=== PATIENT | female | born 1990 | race African-American/Black ===

== ENCOUNTER 2016-08-26 13:00 | Emergency (ER) | payer OTHER ==
[2016-08-26] MEDS ORDERED: ONDANSETRON HCL 8 MG TABLET PO ONE (14:34)
[2016-08-26] MEDS ORDERED: ACETAMINOPHEN 325 MG TABLET PO ONE (14:34)
[2016-08-26] MEDS ORDERED: DIPHENHYDRAMINE HCL 25 MG CAPSULE PO ONE (14:34)
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
[2016-08-26 16:06] VITALS: BP 106/73
== END 2016-08-26 16:06 | disposition home or self-care (01) ==
LOC: ER 13:00
DX: R51 Headache (principal); M54.5 Low back pain; V87.7XXA Person injured in collision between other specified motor vehicles (traffic), initial encounter
CPT/HCPCS: 99283; 72110; 72070; S0119

== ENCOUNTER 2017-06-27 12:30 | Emergency (ER) | payer OTHER ==
[2017-06-27] MEDS ORDERED: LIDOCAINE 5% (700 MG) TRANSDERMAL ADH..PATCH TP ONE (13:33)
[2017-06-27] MEDS ORDERED: HYDROCODONE/ACETAMINOPHEN 5-325 MG TABLET PO ONE (13:33)
--- NOTE | 2017-06-27 13:34 | ER Document Report ---
HPI - HPI Patient complains to provider of: Low back pain Quality of pain: Achy Pain Level: 5 Context: Patient presents complaining of low back pain for the last month. Patient states pain will be worse at night. Patient denies any fever or urinary symptoms. Patient does state that about a month ago she lifted a wheelchair with a heavy patient in it and suspects that symptoms started then. Patient denies any nausea vomiting or diarrhea. Patient denies any radiculopathy or paresthesia. Associated Symptoms: Other - Low back pain. denies: Fever, Headache Exacerbated by: Supine, Movement, Walking Relieved by: Denies Similar symptoms previously: No Recently seen / treated by doctor: No - ROS ROS below otherwise negative: Yes Systems Reviewed and Negative: Yes All other systems reviewed and negative - CONSTITUTIONAL Constitutional: DENIES: Fever, Chills - NEURO Neurology: DENIES: Weakness - REPRODUCTIVE Reproductive: DENIES: : - MUSCULOSKELETAL Musculoskeletal: REPORTS: Back Pain. DENIES: Extremity pain - DERM Skin Color: Normal Skin Problems: None Past Medical History - General Information source: Patient - Social History Smoking Status: Current Every Day Smoker Chew tobacco use (# tins/day): No Smoking Education Provided: Yes Frequency of alcohol use: Occasional Drug Abuse: None Occupation: Childcare Lives with: Family Family History: DM, Malignancy Patient has suicidal ideation: No Patient has homicidal ideation: No - Past Medical History Cardiac Medical History: Reports: Hx Hypertension - hx last Denies: Hx Heart Murmur Endocrine Medical History: 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 Denies: Hx Hyperthyroidism, Hx Hypothyroidism Renal/ Medical History: Denies: Hx Ovarian Cysts, Hx Peritoneal Dialysis, Hx Pelvic Inflammatory Disease Malignancy Medical History: Denies: Hx Breast Cancer, Hx Cervical Cancer, Hx Ovarian Cancer GI Medical History: Reports: Hx Gastroesophageal Reflux Disease - OCCASSIONAL DURING . Denies: Hx Hiatal Hernia, Hx Ulcer Past Surgical History: Reports: Hx Section - X3 - Immunizations Immunizations up to date: Yes Hx Diphtheria, Pertussis, Tetanus Vaccination: Yes - already received Vertical Provider Document - CONSTITUTIONAL Agree With Documented VS: Yes Exam Limitations: No Limitations General Appearance: WD/WN, No Apparent Distress Notes: PHYSICAL EXAMINATION: GENERAL: Well-appearing, well-nourished and in no acute distress. HEAD: Atraumatic, normocephalic. EYES: sclera clear, anicteric, conjunctiva are normal. ENT: nares patent, Moist mucous membranes. NECK: Normal range of motion, supple no lymphadenopathy LUNGS: respirations unlabored HEART: Regular rate and rhythm without murmurs EXTREMITIES: Normal range of motion, no pitting or edema. No cyanosis. Gait normal, pt ambulates without difficulty BACK: Patient with a right SI joint tenderness, lumbar paraspinal tenderness no lumbar midline tenderness, no deformities or step-offs. No CVA tenderness. NEUROLOGICAL: Cranial nerves grossly intact. Normal speech, normal gait. No saddle anesthesia. PSYCH: Normal mood, normal affect. SKIN: Warm, Dry, normal turgor, no rashes or lesions noted. - INFECTION CONTROL TRAVEL OUTSIDE OF THE [place] IN LAST 30 DAYS: No - RESPIRATORY O2 Sat by Pulse Oximetry: 99 - GI/ABDOMEN Gastrointestinal: Abdomen Soft, Abdomen Non-Tender, No Organomegaly, Normal Bowel Sounds Course - Re-evaluation Re-evalutation: 06/27/17 15:26 Controlled substance database reviewed The patient presents with low back pain without signs of spinal cord compression , cauda equina syndrome, infection, aneurysm, or other serious etiology. The patient is neurologically intact. Given the extremely risk of these diagnoses further testing and evaluation for these possibilities does not appear to be indicated at this time. Patient has been instructed to return if the symptoms worsen or change in any way. - Vital Signs Vital signs: Temp Pulse Resp BP Pulse Ox 98.6 F 82 16 113/66 99 06/27/17 12:35 06/27/17 12:35 06/27/17 12:35 06/27/17 12:35 06/27/17 12:35 - Laboratory Laboratory results interpreted by me: 06/27/17 15:26 Labs- Entire Visit 06/27/17 13:54 Urine Color YELLOW Urine Appearance CLEAR Urine pH 5.0 Ur Specific [place] 1.021 Urine Protein NEGATIVE Urine Glucose (UA) NEGATIVE Urine Ketones NEGATIVE Urine Blood NEGATIVE Urine Nitrite NEGATIVE Urine Bilirubin NEGATIVE Urine Urobilinogen NEGATIVE Ur Leukocyte Esterase NEGATIVE Urine WBC (Auto) 0 Urine RBC (Auto) 0 Squamous Epi Cells Auto 1 Urine Mucus (Auto) OCC Urine Ascorbic Acid NEGATIVE Urine HCG, Qual NEGATIVE - Diagnostic Test Radiology reviewed: Reports reviewed Discharge - Discharge Clinical Impression: Low back pain Qualifiers: Chronicity: unspecified Back pain laterality: right Sciatica presence: without sciatica Qualified Code(s): M54.5 - Low back pain Condition: Stable Disposition: HOME, SELF-CARE Instructions: Ice Packs ([facility]), Low Back Pain ([facility]), Warm Packs ([facility]) Additional Instructions: Return immediately for any new or worsening symptoms Followup with your primary care provider, call tomorrow to make a followup appointment Prescriptions: Cyclobenzaprine HCl [Flexeril 10 Mg Tablet] 10 mg PO TID #15 tablet Naproxen [Naprosyn 250 Nmg Tablet] 1 tab PO BID #14 tablet Forms: Smoking Cessation Education, Return to Work Referrals: [facility] [Provider Group] - Follow up as needed
[2017-06-27 14:15] LABS: APPEARANCE,URINE CLEAR; BILIRUBIN,URINE NEGATIVE (NEGATIVE); COLOR,URINE YELLOW; GLUCOSE, URINE NEGATIVE (NEGATIVE); KETONES,URINE NEGATIVE (NEGATIVE); LEUKOCYTE ESTERASE,URINE NEGATIVE (NEGATIVE); NITRITE,URINE NEGATIVE (NEGATIVE); PROTEIN,URINE NEGATIVE (NEGATIVE); URINE SPECIFIC GRAVITY 1.021; UROBILINOGEN,URINE NEGATIVE mg/dL (<2.0)
--- NOTE | 2017-06-27 15:12 | RADIOLOGY REPORT (SQ) ---
EXAM DESCRIPTION: L SPINE WHOLE COMPLETED DATE/TIME: 06/27/2017 3:02 pm REASON FOR STUDY: low back pain COMPARISON: 08/26/2016. NUMBER OF VIEWS: Five views including obliques. TECHNIQUE: AP, lateral, oblique, and sacral radiographic images acquired of the lumbar spine. LIMITATIONS: None. FINDINGS: MINERALIZATION: Normal. SEGMENTATION: Normal. No transitional anatomy. ALIGNMENT: Normal. VERTEBRAE: Maintained height. No fracture or worrisome bone lesion. DISCS: Preserved height. No significant osteophytes or end plate irregularity. POSTERIOR ELEMENTS: Pedicles and facets are intact. No pars defect or posterior arch defects. HARDWARE: None in the spine. PARASPINAL SOFT TISSUES: Normal. PELVIS: Intact as visualized. No fractures or worrisome bone lesions. SI joints intact. OTHER: No other significant finding. IMPRESSION: NORMAL 5 VIEW LUMBAR SPINE. TECHNICAL DOCUMENTATION: JOB ID: [id number] [employer]- All Rights Reserved
[2017-06-27 15:52] VITALS: BP 104/77
== END 2017-06-27 15:52 | disposition home or self-care (01) ==
LOC: ER 12:30
DX: M54.5 Low back pain (principal); F17.200 Nicotine dependence, unspecified, uncomplicated
CPT/HCPCS: 72110; 81001; 81025; 99283

== ENCOUNTER 2018-05-12 10:24 | Observation (INO) | payer SELFPAY ==
[2018-05-12] MEDS ORDERED: KETOROLAC TROMETHAMINE 60 MG/2 ML SDV ONE (10:49)
[2018-05-12] MEDS ORDERED: SUCCINYLCHOLINE CHLORIDE INJ 200 MG/10 ML VIAL ONE (10:49)
[2018-05-12] MEDS ORDERED: DEXAMETHASONE SOD PHOSPHATE INJ 4 MG/1 ML VIAL ONE (10:49)
[2018-05-12] MEDS ORDERED: ONDANSETRON HCL INJ/PF 4 MG/2 ML SDV ONE (10:49)
[2018-05-12] MEDS ORDERED: LIDOCAINE 4%/TETRACAINE 0.5%/EPI 0.18% 5 ML TOPICAL SOLN TOP ONE (11:23)
--- NOTE | 2018-05-12 11:30 | ER Document Report ---
ED Medical Screen (RME) - General TRAVEL OUTSIDE OF THE [place] IN LAST 30 DAYS: No <DARELL ANGULO - Last Filed: 05/12/18 11:23> <DANNIE CALLAHAN - Last Filed: 05/12/18 19:17> - General Chief Complaint: Rectal Pain Stated Complaint: POSSIBLE ABSCESS Time Seen by Provider: 05/12/18 11:17 Notes: 27-year-old female with history of hemorrhoids who presents to the emergency department today with complaints of 2 weeks of rectal pain. Boyfriend at bedside states that it appears that there is "pus in it". Patient states she has used Preparation H cream and Preparation H suppositories with no relief. Patient also states she sat in a warm bath and use sits baths as well, again with no relief. Patient states she has pain with bowel movements. I have greeted and performed a rapid initial assessment of this patient. A comprehensive ED assessment and evaluation of the patient, analysis of test results, and completion of the medical decision making process will be conducted by additional ED providers. Review of systems: GI/: Rectal pain. Possible hemorrhoid or abscess. PHYSICAL EXAM GENERAL: Alert, interacts well. No acute distress. HEAD: Normocephalic, atraumatic. EYES: Pupils equal, round, and reactive to light. Extraocular movements intact. ENT: Oral mucosa moist, tongue midline. NECK: Full range of motion. Supple. Trachea midline. LUNGS: No respiratory distress. EXTREMITIES: Moves all 4 extremities spontaneously. RECTAL: At the 12 o'clock position there is a large firm mass with exquisite tenderness to palpation. There is a thin white area that is suspicious for abscess versus thrombosed normally. NEUROLOGICAL: Alert and oriented x3. Normal speech. PSYCH: Normal affect, normal mood. SKIN: Warm, dry, normal turgor. (DARELL ANGULO) - Related Data Allergies/Adverse Reactions: No Known Allergies Allergy (Verified 05/12/18 10:24) Past Medical History - Social History Chew tobacco use (# tins/day): No Frequency of alcohol use: None Drug Abuse: None - Past Medical History Cardiac Medical History: Reports: Hx Hypertension - hx last Denies: Hx Heart Murmur Endocrine Medical History: 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 Denies: Hx Hyperthyroidism, Hx Hypothyroidism Renal/ Medical History: Denies: Hx Ovarian Cysts, Hx Peritoneal Dialysis, Hx Pelvic Inflammatory Disease Malignancy Medical History: Denies: Hx Breast Cancer, Hx Cervical Cancer, Hx Ovarian Cancer GI Medical History: Reports: Hx Gastroesophageal Reflux Disease - OCCASSIONAL DURING . Denies: Hx Hiatal Hernia, Hx Ulcer Past Surgical History: Reports: Hx Section - X3 - Immunizations Immunizations up to date: Yes Hx Diphtheria, Pertussis, Tetanus Vaccination: Yes - already received <DARELL ANGULO - Last Filed: 05/12/18 11:23> - Vital signs Vitals: Temp Pulse Resp BP Pulse Ox 98.4 F 94 15 116/63 99 05/12/18 10:28 05/12/18 10:28 05/12/18 10:28 05/12/18 10:28 05/12/18 10:28 Course - Laboratory Result Diagrams: 05/12/18 12:16 05/12/18 12:16 <DANNIE CALLAHAN - Last Filed: 05/12/18 19:17> - Vital Signs Vital signs: Temp Pulse Resp BP Pulse Ox 97.7 F 80 16 105/64 100 05/12/18 18:41 05/12/18 18:41 05/12/18 18:41 05/12/18 18:41 05/12/18 18:41 - Laboratory Laboratory results interpreted by me: 05/12/18 12:16 Hgb 10.7 L Hct 33.7 L MCV 69 L MCH 22.0 L MCHC 31.7 L RDW 17.7 H Doctor's Discharge <DARELL ANGULO - Last Filed: 05/12/18 11:23> <DANNIE CALLAHAN - Last Filed: 05/12/18 19:17> - Discharge Clinical Impression: Perirectal abscess Condition: Stable Disposition: ADMITTED OBSERVATION Scribe Documentation - Scribe Written by Scribe:: Ynes Harris, 05/12/2018 [id number] acting as scribe for :: Jeevan <DARELL ANGULO - Last Filed: 05/12/18 11:23>
[2018-05-12] MEDS ORDERED: FENTANYL CITRATE INJ/PF 100 MCG/2 ML AMPUL IV ONE (12:00)
[2018-05-12] MEDS ORDERED: NORMAL SALINE 1000 ML 1,000 ML IV ONE (12:00)
[2018-05-12] MEDS ORDERED: CIPROFLOXACIN 400 MG/D5W RTU 400 MG/200 ML RTUPB IV ONE (12:01)
--- NOTE | 2018-05-12 12:06 | ER Document Report ---
ED GI Bleed / Rectal Pain - General Chief Complaint: Rectal Pain Stated Complaint: POSSIBLE ABSCESS Time Seen by Provider: 05/12/18 11:17 Mode of Arrival: Ambulatory Information source: Patient Notes: Patient presents complaining of rectal pain for the past 2 weeks. Patient states that she has blood with bowel movements. Patient is concerned that she has hemorrhoids. Patient denies any fever. Patient denies any history of inflammatory bowel disease. TRAVEL OUTSIDE OF THE [place] IN LAST 30 DAYS: No - HPI Patient complains to provider of: Bright red bld from rect., Hemorrhoids, Rectal pain Onset: Other - 2 weeks Timing/Duration: Persistent Pain Level: 4 Rectal bleeding: Blood streaks on stool Exacerbated by: Denies Relieved by: Denies Similar symptoms previously: Yes Recently seen / treated by doctor: No - Related Data Allergies/Adverse Reactions: No Known Allergies Allergy (Verified 05/12/18 10:24) Past Medical History - General Information source: Patient - Social History Smoking Status: Current Every Day Smoker Chew tobacco use (# tins/day): No Frequency of alcohol use: None Drug Abuse: None Occupation: Care of disabled people Lives with: Spouse/Significant other Family History: DM, Malignancy Patient has suicidal ideation: No Patient has homicidal ideation: No - Past Medical History Cardiac Medical History: Reports: Hx Hypertension - hx last Denies: Hx Heart Murmur Endocrine Medical History: 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 Denies: Hx Hyperthyroidism, Hx Hypothyroidism Renal/ Medical History: Denies: Hx Ovarian Cysts, Hx Peritoneal Dialysis, Hx Pelvic Inflammatory Disease Malignancy Medical History: Denies: Hx Breast Cancer, Hx Cervical Cancer, Hx Ovarian Cancer GI Medical History: Reports: Hx Gastroesophageal Reflux Disease - OCCASSIONAL DURING . Denies: Hx Hiatal Hernia, Hx Ulcer Past Surgical History: Reports: Hx Section - X3 - Immunizations Immunizations up to date: Yes Hx Diphtheria, Pertussis, Tetanus Vaccination: Yes - already received Review of Systems - Review of Systems Constitutional: No symptoms reported. denies: Fever EENT: No symptoms reported Cardiovascular: No symptoms reported Respiratory: No symptoms reported. denies: Cough Gastrointestinal: Rectal bleeding. denies: Abdominal pain, Nausea, Vomiting Genitourinary: No symptoms reported Female Genitourinary: No symptoms reported Musculoskeletal: No symptoms reported. denies: Back pain Skin: No symptoms reported Hematologic/Lymphatic: No symptoms reported Neurological/Psychological: No symptoms reported Physical Exam - Vital signs Vitals: Temp Pulse Resp BP Pulse Ox 98.4 F 94 15 116/63 99 05/12/18 10:28 05/12/18 10:28 05/12/18 10:28 05/12/18 10:28 05/12/18 10:28 - General General appearance: Appears well, Alert In distress: None - HEENT Head: Normocephalic, Atraumatic Eyes: Normal Conjunctiva: Normal Nasal: Normal Mouth/Lips: Normal Mucous membranes: Normal Neck: Normal, Supple. No: Lymphadenopathy - Respiratory Respiratory status: No respiratory distress Chest status: Nontender Breath sounds: Normal. No: Rales, Rhonchi, Stridor Chest palpation: Normal - Cardiovascular Rhythm: Regular Heart sounds: S1 appreciated, S2 appreciated Murmur: No - Rectal Tenderness: Yes Hemorrhoids: Other - Swelling perirectally with several small pustules Notes: Digital rectal exam performed, patient with subtle fullness felt in rectum anteriorly, after rectal exam performed, patient with obvious purulent drainage from rectum - Back Back: Normal, Nontender. No: Vertebra tenderness - Extremities General upper extremity: Normal inspection, Normal ROM General lower extremity: Normal inspection, Normal ROM - Neurological Neuro grossly intact: Yes Cognition: Normal [place] Coma Scale Eye Opening: Spontaneous [place] Coma Scale Verbal: Oriented [place] Coma Scale Motor: Obeys Commands [place] Coma Scale Total: 15 - Psychological Associated symptoms: Normal affect, Normal mood - Skin Skin Temperature: Warm Skin Moisture: Dry Skin Color: Normal Course - Re-evaluation Re-evalutation: 05/12/18 12:[address] Brown who agrees to exam patient. Recommend starting an IV antibiotics as well as work at this time. Dr. Brown will be down to see patient after he finishes with current surgical case. 05/12/18 13:33 Dr. Brown had been down to evaluate patient and plans to take her to the OR later today. Will plan for admission at this time. - Vital Signs Vital signs: Temp Pulse Resp BP Pulse Ox 97.5 F 88 18 128/81 H 100 05/12/18 17:40 05/12/18 17:40 05/12/18 17:40 05/12/18 17:40 05/12/18 17:40 - Laboratory Result Diagrams: 05/12/18 12:16 12/26/18 12:16 Laboratory results interpreted by me: 05/12/18 12:16 Hgb 10.7 L Hct 33.7 L MCV 69 L MCH 22.0 L MCHC 31.7 L RDW 17.7 H Labs- Entire Visit 05/12/18 05/12/18 05/12/18 12:16 12:16 12:16 WBC 5.9 RBC 4.87 Hgb 10.7 L Hct 33.7 L MCV 69 L MCH 22.0 L MCHC 31.7 L RDW 17.7 H Plt Count 347 Seg Neutrophils % 63.9 Lymphocytes % 26.0 Monocytes % 8.2 Eosinophils % 1.5 Basophils % 0.4 Absolute Neutrophils 3.8 Absolute Lymphocytes 1.5 Absolute Monocytes 0.5 Absolute Eosinophils 0.1 Absolute Basophils 0.0 Sodium 137.7 Potassium 3.9 Chloride 105 Carbon Dioxide 28 Anion Gap 5 BUN 14 Creatinine 0.61 Est GFR ( Amer) > 60 Est GFR (Non-Af Amer) > 60 Glucose 91 Calcium 8.9 Total Bilirubin 0.5 Direct Bilirubin 0.3 Neonat Total Bilirubin Not Reportable Neonat Direct Bilirubin Not Reportable Neonat Indirect Bili Not Reportable AST 27 ALT 15 Alkaline Phosphatase 86 Total Protein 7.4 Albumin 4.2 Serum HCG, Qual NEGATIVE Discharge - Discharge Clinical Impression: Perirectal abscess Condition: Stable Disposition: ADMITTED OBSERVATION Admitting Provider: Surgicalist Unit Admitted: Medical Floor
[2018-05-12 12:49] LABS: ABSOLUTE EOSINOPHILS # (AUTO) 0.1 10^3/uL (0.0-0.6); ABSOLUTE LYMPHOCYTES (AUTO) 1.5 10^3/uL (0.5-4.7); ABSOLUTE MONOCYTES (AUTO) 0.5 10^3/uL (0.1-1.4); ABSOLUTE NEUT (AUTO) 3.8 10^3/uL (1.7-8.2); BASOPHILS % (AUTO) 0.4 % (0-2); EOSINOPHILS % (AUTO) 1.5 % (0-6); HEMATOCRIT 33.7 % (36.0-47.0); HEMOGLOBIN 10.7 g/dL (12.0-15.5); MEAN CORPUSCULAR HGB CONC 31.7 g/dL (32.0-36.0); MEAN CORPUSCULAR VOLUME 69 fl (80-97); MONOCYTES % (AUTO) 8.2 % (3-13); PLATELET COUNT 347 10^3/uL (150-450); RED BLOOD COUNT 4.87 10^6/uL (3.72-5.28); RED CELL DISTRIBUTION WIDTH 17.7 % (11.5-14.0); SEGMENTED NEUTROPHILS % (AUTO) 63.9 % (42-78); TOTAL CELLS COUNTED % (AUTO) 100 %; WHITE BLOOD COUNT 5.9 10^3/uL (4.0-10.5)
[2018-05-12] MEDS ORDERED: MORPHINE SULFATE 10 MG/ML INJ IV PRN ×2 (12:59→16:06)
[2018-05-12] MEDS ORDERED: NORMAL SALINE 1000 ML 1,000 ML IV PRN (12:59)
[2018-05-12] MEDS ORDERED: ONDANSETRON HCL INJ/PF 4 MG/2 ML SDV IV PRN (12:59)
[2018-05-12 13:00] LABS: ALBUMIN 4.2 g/dL (3.5-5.0); ANION GAP 5 (5-19); BILIRUBIN,DIRECT 0.3 mg/dL (0.0-0.4); BILIRUBIN,TOTAL 0.5 mg/dL (0.2-1.3); BLOOD UREA NITROGEN 14 mg/dL (7-20); CALCIUM 8.9 mg/dL (8.4-10.2); CARBON DIOXIDE 28 mmol/L (22-30); CHLORIDE 105 mmol/L (98-107); GLUCOSE 91 mg/dL (75-110); SODIUM 137.7 mmol/L (137-145); TOTAL PROTEIN 7.4 g/dL (6.3-8.2)
[2018-05-12] MEDS ORDERED: METRONIDAZOLE 500 MG/NS RTU 500 MG/100 ML RTUPB IV ONE (13:00)
[2018-05-12 13:10] LABS: ALANINE AMINOTRANSFERASE 15 U/L (9-52); ALKALINE PHOSPHATASE 86 U/L (38-126); ASPARTATE AMINO TRANSFERASE 27 U/L (14-36); POTASSIUM 3.9 mmol/L (3.6-5.0)
[2018-05-12] MEDS ORDERED: ACETAMINOPHEN 1,000 MG/100 ML RTUPB IV ONE (14:41)
[2018-05-12] MEDS ORDERED: MIDAZOLAM 2 MG/2 ML INJ ONE (14:41)
[2018-05-12] MEDS ORDERED: PROPOFOL INJ 200 MG/20 ML VIAL IV ONE (14:41)
[2018-05-12] MEDS ORDERED: FENTANYL CITRATE INJ/PF 100 MCG/2 ML AMPUL ONE (14:41)
--- NOTE | 2018-05-12 14:57 | PDOC H&P ---
History of Present Illness Admission Date/PCP: 05/12/18 13:55 Patient complains of: Perirectal pain and swelling History of Present Illness: WENDY MARLEY is a 27 year old female with a remote history of hemorrhoids. She reports that she always has skin tags present on the anterior anus. The patient approximate 1 week ago began to have swelling and pain. This has progressed to purulent drainage today. Her pain is sharp and stabbing. It is unrelenting. She rates it 10 out of 10. It does not radiate. She denies fevers, chills, nausea, vomiting, melena, hematochezia, hematemesis, chest pain, shortness of breath, dizziness, orthostasis, blurry vision, malaise, or fatigue. Past Medical History Cardiac Medical History: Reports: Hypertension - hx last Denies: Heart Murmur Endocrine Medical History: Reports: Diabetes Mellitus Type 2 - gestational Denies: Hyperthyroidism, Hypothyroidism Malignancy Medical History: Denies: Breast Cancer, Cervical Cancer, Ovarian Cancer GI Medical History: Reports: Gastroesophageal Reflux Disease - OCCASSIONAL DURING Denies: Hiatal Hernia Past Surgical History Past Surgical History: Reports: Section - X3 Social History Smoking Status: Current Every Day Smoker Hx Recreational Drug Use: No Hx Prescription Drug Abuse: No - Advance Directive Resuscitation Status: Full Code Family History Family History: DM, Malignancy Parental Family History Reviewed: Yes Children Family History Reviewed: Yes Sibling(s) Family History Reviewed.: Yes Medication/Allergy Allergies/Adverse Reactions: No Known Allergies Allergy (Verified 05/12/18 10:24) Review of Systems Constitutional: ABSENT: anorexia, chills, fatigue, fever(s), headache(s) Eyes: ABSENT: visual disturbances Ears: ABSENT: hearing changes Nose, Mouth, and Throat: ABSENT: sore throat Cardiovascular: ABSENT: chest pain, palpitations Respiratory: ABSENT: cough, dyspnea Gastrointestinal: PRESENT: other - Rectal pain, swelling, and drainage. ABSENT: abdominal pain, bloating, nausea, vomiting Genitourinary: ABSENT: dysuria Musculoskeletal: ABSENT: back pain Integumentary: PRESENT: other - Perirectal swelling, pain, and drainage Neurological: ABSENT: confusion, convulsions, dizziness Psychiatric: ABSENT: anxiety Endocrine: ABSENT: cold intolerance, heat intolerance Hematologic/Lymphatic: ABSENT: easy bleeding, easy bruising Physical Exam Vital Signs: Temp Pulse Resp BP Pulse Ox 97.7 F 73 16 114/74 100 05/12/18 14:20 05/12/18 14:20 05/12/18 14:20 05/12/18 14:20 05/12/18 14:20 Intake & Output 05/11/18 05/12/18 05/13/18 06:59 06:59 06:59 Intake Total 100 Balance 100 Weight 80.2 kg General appearance: PRESENT: mild distress - Rectal pain Head exam: PRESENT: atraumatic, normocephalic Eye exam: PRESENT: EOMI, PERRLA. ABSENT: scleral icterus Mouth exam: PRESENT: moist, neck supple Neck exam: ABSENT: meningismus, tenderness, thyromegaly, tracheal deviation Respiratory exam: PRESENT: clear to auscultation manjeet, unlabored. ABSENT: chest wall tenderness, tachypnea, wheezes Cardiovascular exam: PRESENT: RRR Pulses: PRESENT: normal radial pulses GI/Abdominal exam: PRESENT: soft. ABSENT: distended, guarding, rigid, tenderness Rectal exam: PRESENT: normal rectal tone, other - Fullness at the 6 o'clock position with purulent drainage. Extremities exam: ABSENT: clubbing Musculoskeletal exam: ABSENT: deformity Neurological exam: PRESENT: alert, awake, oriented to person, oriented to place, oriented to time, oriented to situation, CN II-XII grossly intact. ABSENT: motor sensory deficit Psychiatric exam: ABSENT: agitated, anxious, depressed Focused psych exam: ABSENT: delusional Skin exam: ABSENT: cyanosis, jaundice Results Laboratory Results: 05/12/18 12:16 05/12/18 12:16 05/12/18 05/12/18 05/12/18 12:16 12:16 12:16 WBC 5.9 RBC 4.87 Hgb 10.7 L Hct 33.7 L MCV 69 L MCH 22.0 L MCHC 31.7 L RDW 17.7 H Plt Count 347 Seg Neutrophils % 63.9 Lymphocytes % 26.0 Monocytes % 8.2 Eosinophils % 1.5 Basophils % 0.4 Absolute Neutrophils 3.8 Absolute Lymphocytes 1.5 Absolute Monocytes 0.5 Absolute Eosinophils 0.1 Absolute Basophils 0.0 Sodium 137.7 Potassium 3.9 Chloride 105 Carbon Dioxide 28 Anion Gap 5 BUN 14 Creatinine 0.61 Est GFR ( Amer) > 60 Est GFR (Non-Af Amer) > 60 Glucose 91 Calcium 8.9 Total Bilirubin 0.5 AST 27 ALT 15 Alkaline Phosphatase 86 Total Protein 7.4 Albumin 4.2 Serum HCG, Qual NEGATIVE Assessment & Plan - Diagnosis (1) Perirectal abscess Is this a current diagnosis for this admission?: Yes - Plan Summary Plan Summary: There is a 27-year-old female with a one-week history of swelling and pain in the anterior rectal position. On exam today, the patient has a perirectal abscess. I recommended incision and drainage in the operating room. The patient has agreed to this. Risks/benefits discussed, informed consent obtained, and all questions answered.
[2018-05-12] MEDS ORDERED: BUPIVACAINE INJ/PF LIPOSOME/PF 266 MG/20 ML SDV ONE (15:05)
[2018-05-12] MEDS ORDERED: LIDOCAINE 2% JELLY 30 ML TUBE ONE (15:59)
[2018-05-12] MEDS ORDERED: BACITRACIN ZINC OINTMENT 15 GM ONE (16:01)
[2018-05-12] MEDS ORDERED: MEPERIDINE HCL/PF INJ 25 MG/1 ML DISP.SYRIN IV PRN (16:06)
[2018-05-12] MEDS ORDERED: FENTANYL CITRATE INJ/PF 100 MCG/2 ML AMPUL IV PRN ×3 (16:06)
[2018-05-12] MEDS ORDERED: DIPHENHYDRAMINE HCL 50 MG/ML VIAL IV PRN (16:06)
[2018-05-12] MEDS ORDERED: PROMETHAZINE HCL INJ 25 MG/1 ML VIAL IV PRN ×2 (16:06)
[2018-05-12] MEDS ORDERED: OXYCODONE-ACETAMINOPHEN 5-325 MG TABLET PO PRN ×2 (16:06)
--- NOTE | 2018-05-12 17:42 | Operative Report ---
Nonrecallable Operative Report DATE OF SURGERY: 05/12/18 PREOPERATIVE DIAGNOSIS: Perirectal abscess at the 6 o'clock position. POSTOPERATIVE DIAGNOSIS: Same as above OPERATION: Incision and drainage of perirectal abscess SURGEON: JINA SAAVEDRA ANESTHESIA: GA TISSUE REMOVED OR ALTERED: Excess perianal skin COMPLICATIONS: None apparent ESTIMATED BLOOD LOSS: Minimal PROCEDURE: Drains/implants: 4 x 4 gauze. Procedure in detail: After informed consent was obtained, the patient was brought to the operating room and laid in the prone jackknife position. The area of the anus and rectum were prepped and draped in a normal sterile fashion. The Hill-Daly retractor was inserted into the anus, after an anal block was created with Exparel. The perirectal abscess was located at the 6 o'clock position. An incision was created over the area of fluctuance. There is a large abscess cavity present. The abscess cavity was unroofed. This was done with great care, to avoid injury to the sphincter complex. Once the abscess was unroofed, the abscess cavity was irrigated, and a dressing was placed. The procedure at this time was concluded. All sponge, instrument, and needle counts were correct x2.
[2018-05-12] MEDS: HYDROCODONE/ACETAMINOPHEN 10-325 MG TABLET PO PRN (19:24)
[2018-05-12] MEDS: CIPROFLOXACIN 400 MG/D5W RTU 400 MG/200 ML RTUPB IV SCH (22:06)
[2018-05-12] MEDS: METRONIDAZOLE 500 MG/NS RTU 500 MG/100 ML RTUPB IV SCH (23:56)
[2018-05-13] MEDS: METRONIDAZOLE 500 MG/NS RTU 500 MG/100 ML RTUPB IV SCH (05:11)
[2018-05-13] MEDS: HYDROCODONE/ACETAMINOPHEN 10-325 MG TABLET PO PRN ×2 (05:16→10:45)
--- NOTE | 2018-05-13 05:49 | PDOC DISCHARGE SUMMARY ---
General - Admit/Disc Date/PCP Admission Date/Primary Care Provider: 05/12/18 13:55 Discharge Date: 05/13/18 - Discharge Diagnosis (1) Perirectal abscess Is this a current diagnosis for this admission?: Yes - Additional Information Resuscitation Status: Full Code Discharge Diet: As Tolerated Discharge Activity: Balance Activity w/Rest Home Medications: No Home Medications 05/12/18 History of Present Illness History of Present Illness: WENDY MARLEY is a 27 year old female with a remote history of hemorrhoids. She reports that she always has skin tags present on the anterior anus. The patient approximate 1 week ago began to have swelling and pain. This has progressed to purulent drainage today. Her pain is sharp and stabbing. It is unrelenting. She rates it 10 out of 10. It does not radiate. She denies fevers, chills, nausea, vomiting, melena, hematochezia, hematemesis, chest pain, shortness of breath, dizziness, orthostasis, blurry vision, malaise, or fatigue. Hospital Course Hospital Course: The patient was taken to the operating room where incision and drainage of a perirectal abscess was performed. Patient was sent to the floor in stable condition. On postoperative day #1, the patient was afebrile, her pain was controlled, and it was felt that she had reached maximal hospital benefit and was fit for discharge. Physical Exam Vital Signs: Temp Pulse Resp BP Pulse Ox 98.7 F 68 18 121/62 100 05/13/18 04:35 05/13/18 04:35 05/13/18 04:35 05/13/18 04:35 05/13/18 04:35 Intake & Output 05/11/18 05/12/18 05/13/18 06:59 06:59 06:59 Intake Total 1999 Output Total 1994 Weight 80.2 kg Results Laboratory Results: 05/12/18 12:16 05/12/18 12:16 05/12/18 05/12/18 05/12/18 12:16 12:16 12:16 WBC 5.9 RBC 4.87 Hgb 10.7 L Hct 33.7 L MCV 69 L MCH 22.0 L MCHC 31.7 L RDW 17.7 H Plt Count 347 Seg Neutrophils % 63.9 Lymphocytes % 26.0 Monocytes % 8.2 Eosinophils % 1.5 Basophils % 0.4 Absolute Neutrophils 3.8 Absolute Lymphocytes 1.5 Absolute Monocytes 0.5 Absolute Eosinophils 0.1 Absolute Basophils 0.0 Sodium 137.7 Potassium 3.9 Chloride 105 Carbon Dioxide 28 Anion Gap 5 BUN 14 Creatinine 0.61 Est GFR ( Amer) > 60 Est GFR (Non-Af Amer) > 60 Glucose 91 Calcium 8.9 Total Bilirubin 0.5 AST 27 ALT 15 Alkaline Phosphatase 86 Total Protein 7.4 Albumin 4.2 Serum HCG, Qual NEGATIVE Qualifiers - * PATIENT BEING DISCHARGED WITH ANY OF THE FOLLOWING DIAGNOSIS: No Plan Discharge Plan: Discharge home. Diet as tolerated. Activity: No strenuous activity. Follow-up with me in 7-10 days at [facility]. [place] 10/325 mg p.o. every 6 hours as needed for pain. Ibuprofen 800 mg p.o. 3 times daily with meals. Lidocaine ointment 5%, apply to rectum 3 times daily. Neosporin [id number] ointment, apply to rectum 3 times daily. Fiber supplement twice daily. Soak buttock and warm soapy water twice daily and after bowel movements. Dcgy-grx-[id number] stool softeners twice daily. Cipro 500 mg p.o. twice daily. Flagyl 500 mg p.o. 3 times daily. Time Spent: Less than 30 Minutes
[2018-05-13 10:07] VITALS: BP 114/74
[2018-05-13] MEDS: CIPROFLOXACIN 400 MG/D5W RTU 400 MG/200 ML RTUPB IV SCH (11:01)
== END 2018-05-13 11:45 | disposition home or self-care (01) ==
LOC: ER 10:24 → EH 13:55 → 2N 16:56
PROVIDERS: ADMIT Surgery; ATTEND Surgery
PROC: 0D9P0ZZ Drainage of Rectum, Open Approach (ICD-10-PCS; principal; 2018-05-12 17:00)
DX: K61.1 Rectal abscess (principal); K62.5 Hemorrhage of anus and rectum; F17.200 Nicotine dependence, unspecified, uncomplicated
CPT/HCPCS: 99285; 96375; 96365; 96367; 36415; 87040; 87070; 87205; 84703; 85025; 87075; 87077; 80053; 87186; 46040; G0378 ×3; J2250; J3490 ×2; J1100; J1885; J3010; J0330; J2405; J7030; J2704; J0744; J0131; C9290; 902

== ENCOUNTER 2019-05-12 10:43 | Emergency (ER) | payer SELFPAY ==
--- NOTE | 2019-05-12 12:41 | ER Document Report ---
ED Medical Screen (RME) - General Chief Complaint: Abdominal Pain Stated Complaint: ABDOMINAL PAIN Time Seen by Provider: 05/12/19 12:38 Notes: Patient is a G4, P3 who presents emergency department with a chief complaint of lower abdominal cramping. Patient reports over the past month she has had frequent headaches. Patient reports she has attempted to take Tylenol without much relief. Patient reports last night she started to have lower abdominal cramping. Patient reports she did take a home test last week which was positive. Patient reports her last menstrual cycle is an estimated April 04, 2019. Patient denies nausea, vomiting or diarrhea. Patient denies sick contacts. Patient denies urinary symptoms. Patient denies vaginal bleeding or discharge. TRAVEL OUTSIDE OF THE [place] IN LAST 30 DAYS: No - Related Data Allergies/Adverse Reactions: No Known Allergies Allergy (Verified 05/12/18 10:24) Home Medications: no home meds Past Medical History - Social History Chew tobacco use (# tins/day): No Drug Abuse: None - Past Medical History Cardiac Medical History: Reports: Hx Hypertension - hx last Denies: Hx Heart Murmur Endocrine Medical History: 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 Denies: Hx Hyperthyroidism, Hx Hypothyroidism Renal/ Medical History: Denies: Hx Ovarian Cysts, Hx Peritoneal Dialysis, Hx Pelvic Inflammatory Disease Malignancy Medical History: Denies: Hx Breast Cancer, Hx Cervical Cancer, Hx Ovarian Cancer GI Medical History: Reports: Hx Gastroesophageal Reflux Disease - OCCASSIONAL DURING . Denies: Hx Hiatal Hernia, Hx Ulcer Past Surgical History: Reports: Hx Section - X3 - Immunizations Immunizations up to date: Yes Hx Diphtheria, Pertussis, Tetanus Vaccination: Yes - already received Physical Exam - Vital signs Vitals: Temp Pulse Resp BP Pulse Ox 97.9 F 80 18 128/74 H 99 05/12/19 10:54 05/12/19 10:54 05/12/19 10:54 05/12/19 10:54 05/12/19 10:54 Course - Re-evaluation Re-evalutation: 05/12/19 12:40 I have greeted and performed a rapid initial assessment of this patient. A comprehensive ED assessment and evaluation of the patient, analysis of test results and completion of the medical decision making process will be conducted by additional ED providers. - Vital Signs Vital signs: Temp Pulse Resp BP Pulse Ox 97.9 F 80 18 128/74 H 99 05/12/19 10:54 05/12/19 10:54 05/12/19 10:54 05/12/19 10:54 05/12/19 10:54
[2019-05-12 12:57] LABS: ABSOLUTE LYMPHOCYTES (AUTO) 1.8 10^3/uL (0.5-4.7); ABSOLUTE MONOCYTES (AUTO) 0.4 10^3/uL (0.1-1.4); ABSOLUTE NEUT (AUTO) 5.7 10^3/uL (1.7-8.2); BASOPHILS % (AUTO) 0.3 % (0-2); EOSINOPHILS % (AUTO) 0.5 % (0-6); HEMOGLOBIN 12.1 g/dL (12.0-15.5); LYMPHOCYTES % (AUTO) 22.8 % (13-45); MEAN CORPUSCULAR HGB CONC 31.9 g/dL (32.0-36.0); MEAN CORPUSCULAR VOLUME 72 fl (80-97); MONOCYTES % (AUTO) 4.8 % (3-13); PLATELET COUNT 273 10^3/uL (150-450); RED BLOOD COUNT 5.28 10^6/uL (3.72-5.28); RED CELL DISTRIBUTION WIDTH 18.6 % (11.5-14.0); SEGMENTED NEUTROPHILS % (AUTO) 71.6 % (42-78); TOTAL CELLS COUNTED % (AUTO) 100 %
[2019-05-12 12:58] LABS: APPEARANCE,URINE CLEAR; BILIRUBIN,URINE NEGATIVE (NEGATIVE); COLOR,URINE YELLOW; GLUCOSE, URINE NEGATIVE (NEGATIVE); KETONES,URINE NEGATIVE (NEGATIVE); LEUKOCYTE ESTERASE,URINE NEGATIVE (NEGATIVE); NITRITE,URINE NEGATIVE (NEGATIVE); PROTEIN,URINE NEGATIVE (NEGATIVE); URINE SPECIFIC GRAVITY 1.023; UROBILINOGEN,URINE NEGATIVE mg/dL (<2.0)
[2019-05-12 13:16] LABS: ALBUMIN 4.2 g/dL (3.5-5.0); ALKALINE PHOSPHATASE 70 U/L (38-126); ANION GAP 11 (5-19); ASPARTATE AMINO TRANSFERASE 19 U/L (14-36); BILIRUBIN,TOTAL 0.6 mg/dL (0.2-1.3); BLOOD UREA NITROGEN 15 mg/dL (7-20); CALCIUM 9.6 mg/dL (8.4-10.2); CARBON DIOXIDE 26 mmol/L (22-30); CHLORIDE 104 mmol/L (98-107); GLUCOSE 128 mg/dL (75-110); TOTAL PROTEIN 7.2 g/dL (6.3-8.2)
--- NOTE | 2019-05-12 14:40 | RADIOLOGY REPORT (SQ) ---
EXAM DESCRIPTION: U/S OB TRANSVAG W/DOPPLER COMPLETED DATE/TIME: 05/12/2019 2:25 pm REASON FOR STUDY: lower abdominal crampinh, + preg test COMPARISON: None. TECHNIQUE: Transvaginal static and realtime grayscale images acquired of the pelvis. Additional nicole cted spectral and color Doppler images recorded. All images stored on PACs. CLINICAL AGE: 5 weeks 3 days [facility].34 LIMITATIONS: None. FINDINGS: UTERUS: No visualized intrauterine . Cesarian section scar. RIGHT ADNEXA: Normal vascular flow. Unilocular simple appearing cyst measuring 2.5 x 2.6 x 3.1 cm No adnexal free fluid. No adnexal masses. LEFT ADNEXA: Normal vascular flow. Circumscribed 1.3 x 1.3 x 1.5 cm cyst containing low level nonvas cular reticular echoes. No adnexal free fluid. No adnexal masses. FREE FLUID: Trace free fluid within the cul-de-sac. OTHER: No other significant finding. IMPRESSION: NO VISUALIZED INTRA- OR EXTRAUTERINE . bHCG LEVEL TOO LOW TO EXPECT VISUALIZATION OF . ECTOPIC CANNOT BE EXCLUDED ALTHOUGH NOT VISUALIZED ON THIS EXAM. FOLLOW-UP ULTRASOUND AND SERIAL BHCG LEVELS STRONGLY RECOMMENDED TO ACCURATELY ASSESS STATU S. SIMPLE APPEARING 3.1 CM RIGHT OVARIAN CYST. 1.5 CM LEFT HEMORRHAGIC OVARIAN CYST. TRACE FREE FLUID WITHIN THE PELVIS WITHOUT HEMOPERITONEUM. TECHNICAL DOCUMENTATION: JOB ID: [id number] [employer]- All Rights Reserved Reading location - IP/workstation name: [email or web address]
--- NOTE | 2019-05-12 15:30 | ER Document Report ---
ED GI/ - General Chief Complaint: Abdominal Pain Stated Complaint: ABDOMINAL PAIN Time Seen by Provider: 05/12/19 12:38 Notes: Patient is a G4, P3 who presents emergency department with a chief complaint of lower abdominal cramping. Patient reports over the past month she has had frequent headaches. Patient reports she has attempted to take Tylenol without much relief. Patient reports last night she started to have lower abdominal cramping. Patient reports she did take a home test last week which was positive. Patient reports her last menstrual cycle is an estimated April 04, 2019. Patient denies nausea, vomiting or diarrhea. Patient denies sick contacts. Patient denies urinary symptoms. Patient denies vaginal bleeding or discharge. TRAVEL OUTSIDE OF THE [place] IN LAST 30 DAYS: No - Related Data Allergies/Adverse Reactions: No Known Allergies Allergy (Verified 05/12/18 10:24) Home Medications: no home meds Past Medical History - General Information source: Patient - Social History Smoking Status: Never Smoker Chew tobacco use (# tins/day): No Frequency of alcohol use: None Drug Abuse: None Lives with: Family Family History: DM, Malignancy Patient has suicidal ideation: No Patient has homicidal ideation: No - Past Medical History Cardiac Medical History: Reports: Hx Hypertension - hx last Denies: Hx Heart Murmur Pulmonary Medical History: Reports: None EENT Medical History: Reports: None Neurological Medical History: Reports: None Endocrine Medical History: 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 Denies: Hx Hyperthyroidism, Hx Hypothyroidism Renal/ Medical History: Reports: None. Denies: Hx Ovarian Cysts, Hx Peritoneal Dialysis, Hx Pelvic Inflammatory Disease Malignancy Medical History: Reports: None. Denies: Hx Breast Cancer, Hx Cervical Cancer, Hx Ovarian Cancer GI Medical History: Reports: Hx Gastroesophageal Reflux Disease - OCCASSIONAL DURING . Denies: Hx Hiatal Hernia, Hx Ulcer Musculoskeletal Medical History: Reports None Skin Medical History: Reports None Psychiatric Medical History: Reports: None Traumatic Medical History: Reports: None Infectious Medical History: Reports: None Past Surgical History: Reports: Hx Section - X3 - Immunizations Immunizations up to date: Yes Hx Diphtheria, Pertussis, Tetanus Vaccination: Yes - already received Review of Systems - Review of Systems Constitutional: No symptoms reported EENT: No symptoms reported Cardiovascular: No symptoms reported Respiratory: No symptoms reported Gastrointestinal: See HPI Genitourinary: No symptoms reported Female Genitourinary: See HPI Musculoskeletal: No symptoms reported Skin: No symptoms reported Hematologic/Lymphatic: No symptoms reported Neurological/Psychological: No symptoms reported Physical Exam - Vital signs Vitals: Temp Pulse Resp BP Pulse Ox 97.9 F 80 18 128/74 H 99 05/12/19 10:54 05/12/19 10:54 05/12/19 10:54 05/12/19 10:54 05/12/19 10:54 Interpretation: Normal - Notes Notes: GENERAL: Well-appearing, well-nourished and in no acute distress. HEAD: Atraumatic, normocephalic. EYES: Pupils equal round and reactive to light, extraocular movements intact, sclera anicteric, conjunctiva are normal. ENT: Nares patent, oropharynx clear without exudates. Moist mucous membranes. NECK: Normal range of motion, supple without lymphadenopathy or JVD. LUNGS: Breath sounds clear to auscultation bilaterally and equal. No wheezes rales or rhonchi. HEART: Regular rate and rhythm without murmurs, rubs or gallops. ABDOMEN: Soft, nontender, normoactive bowel sounds. No guarding, no rebound. No masses appreciated. BACK: No cervical, thoracic, lumbar midline tenderness. No saddle anesthesia, normal distal neurovascular exam. No CVA tenderness. GENITOURINARY: Deferred. EXTREMITIES: Normal range of motion, no pitting or edema. No clubbing or cyanosis. NEUROLOGICAL: Cranial nerves II through XII grossly intact. Normal speech, normal gait. PSYCH: Normal mood, normal affect. SKIN: Warm, Dry, normal turgor, no rashes or lesions noted. Course - Re-evaluation Re-evalutation: 05/12/19 15:30 I did discuss the results of the patient's ultrasound and blood work with her. She is to return in 48 hours to have repeat blood drawn. Did inform the patient to establish care with the health department so she can initiate care. Patient verbalized understanding and to call tomorrow for an appointment. Patient also aware that if her hCG is trending upward she does need to have a repeat ultrasound in the next few weeks to make sure that the gestational sac and is located in the uterus and not the fallopian tube. Patient nontoxic-appearing verbalizes understanding. - Vital Signs Vital signs: Temp Pulse Resp BP Pulse Ox 98.7 F 87 16 118/68 100 05/12/19 15:41 05/12/19 15:41 05/12/19 15:41 05/12/19 15:41 05/12/19 15:41 - Laboratory Result Diagrams: 05/12/19 12:45 05/12/19 12:45 Laboratory results interpreted by me: 05/12/19 05/12/19 05/12/19 12:45 12:45 12:45 MCV 72 L MCH 23.0 L MCHC 31.9 L RDW 18.6 H Glucose 128 H Beta HCG, Quant 81.34 H Urine HCG, Qual POSITIVE H 05/12/19 15:25 Laboratory 05/12/19 05/12/19 05/12/19 12:45 12:45 12:45 WBC 8.0 RBC 5.28 Hgb 12.1 Hct 38.0 MCV 72 L MCH 23.0 L MCHC 31.9 L RDW 18.6 H Plt Count 273 Lymph % (Auto) 22.8 Gooding % (Auto) 4.8 Eos % (Auto) 0.5 Baso % (Auto) 0.3 Absolute Neuts (auto) 5.7 Absolute Lymphs (auto) 1.8 Absolute Monos (auto) 0.4 Absolute Eos (auto) 0.0 Absolute Basos (auto) 0.0 Seg Neutrophils % 71.6 Sodium 140.7 Potassium 4.0 Chloride 104 Carbon Dioxide 26 Anion Gap 11 BUN 15 Creatinine 0.72 Est GFR ( Amer) > 60 Est GFR (MDRD) Non-Af > 60 Glucose 128 H Calcium 9.6 Total Bilirubin 0.6 Direct Bilirubin 0.0 Neonat Total Bilirubin Not Reportable Neonat Direct Bilirubin Not Reportable Neonat Indirect Bili Not Reportable AST 19 ALT 11 Alkaline Phosphatase 70 Total Protein 7.2 Albumin 4.2 Beta HCG, Quant 81.34 H Total Beta HCG POSITIVE Urine Color YELLOW Urine Appearance CLEAR Urine pH 6.0 Ur Specific Conifer 1.023 Urine Protein NEGATIVE Urine Glucose (UA) NEGATIVE Urine Ketones NEGATIVE Urine Blood NEGATIVE Urine Nitrite NEGATIVE Urine Bilirubin NEGATIVE Urine Urobilinogen NEGATIVE Ur Leukocyte Esterase NEGATIVE Urine RBC (Auto) 1 Squamous Epi Cells Auto 1 Urine Mucus (Auto) OCC Urine Ascorbic Acid NEGATIVE Urine HCG, Qual POSITIVE H - Diagnostic Test Radiology reviewed: Reports reviewed Radiology results interpreted by me: 05/12/19 15:25 Transvaginal US 05/12/19 13:08 IMPRESSION: NO VISUALIZED INTRA- OR EXTRAUTERINE . bHCG LEVEL TOO LOW TO EXPECT VISUALIZATION OF . ECTOPIC CANNOT BE EXCLUDED ALTHOUGH NOT VISUALIZED ON THIS EXAM. FOLLOW-UP ULTRASOUND AND SERIAL BHCG LEVELS STRONGLY RECOMMENDED TO ACCURATELY ASSESS STATUS. SIMPLE APPEARING 3.1 CM RIGHT OVARIAN CYST. 1.5 CM LEFT HEMORRHAGIC OVARIAN CYST. TRACE FREE FLUID WITHIN THE PELVIS WITHOUT HEMOPERITONEUM. Discharge - Discharge Clinical Impression: Abdominal cramping affecting Ovarian cyst Qualifiers: Laterality: bilateral Qualified Code(s): N83.201 - Unspecified ovarian cyst, right side Condition: Stable Disposition: HOME, SELF-CARE Additional Instructions: *Today was in the emergency department for lower abdominal cramping. It was found that you are . Your beta quant which is the blood work that checks for the hCG hormone and was 81. This is low but positive. At this time your beta hCG is too low to expect visualization of on the ultrasound. You do need to come back in 48 hours with your outpatient lab form as discussed to have this redrawn. Please call [phone] about 2 hours after having your blood work drawn to receive the results. You do need to start taking a vitamin. If you are having any pain or discomfort you can take Tylenol safely but do not take any ibuprofen or NSAIDs such as Aleve or Advil. Please refrain from alcohol intake, smoking. Please call the health department tomorrow to establish care as you do not have health insurance. They will help you apply for Medicaid and start your PATIENT SERVICES CLERK care. Please return to the emergency department if you develop severe abdominal pain, vomiting, vaginal bleeding or discharge or have any new or worsening symptoms. You are . care is best started as early in as possible. If you're unsure about continuing this , you should discuss this with your physician or with philosophy and religion instructor at [facility]. You should take only medications approved by your physician. Acetaminophen can safely be taken for minor pains. As a rule, medication for chronic co nditions such as asthma or seizures can safely be continued. You should discuss with the physician every medicine you take. Any regular exercise program can be continued. Talk to your physician, however, before engaging in competitive or demanding sports. Alcohol, smoking, and "street drugs" are dangerous to your baby. Cocaine is especially dangerous. Don't use any illicit drugs! Ovarian Cyst Your examination shows the presence of an ovarian cyst. This is a ball of fluid attached to the ovary. Ovarian cysts in women of child-bearing age are usually innocent. However, the cyst may cause pain when it grows or bursts. An innocent ovarian cyst will usually go away by itself. When the cyst becomes painful, you should rest. Pain medication may be required. Some women find a hot water bottle soothing. The pain usually resolves within one or two days. After menopause, an ovarian cyst may mean a tumor, and requires more aggressive evaluation -- usually surgery is recommended to remove or biopsy the cyst. A very large cyst requires evaluation at any age. Most cysts (even the innocent ones) require follow-up examination. Call the doctor or return at any time if the pain increases significantly, if you become faint, or if you experience vaginal bleeding. Forms: Follow-Up Laboratory Testing
[2019-05-12 15:41] VITALS: BP 118/68
== END 2019-05-12 15:42 | disposition home or self-care (01) ==
LOC: ER 10:43
DX: O34.81 Maternal care for other abnormalities of pelvic organs, first trimester (principal); N83.201 Unspecified ovarian cyst, right side; R10.30 Lower abdominal pain, unspecified
CPT/HCPCS: 36415; 76817; 80053; 81001; 81025; 84702; 85025; 93976; 99284

== ENCOUNTER 2019-06-17 09:34 | Emergency (ER) | payer SELFPAY ==
--- NOTE | 2019-06-17 10:39 | ER Document Report ---
ED Medical Screen (RME) - General Chief Complaint: Chest Pain Stated Complaint: CHEST PAIN Time Seen by Provider: 06/17/19 10:35 Mode of Arrival: Ambulatory Information source: Patient Notes: 28-year-old female presented to ED for complaint of burning in her chest that started last night. She states she also had shortness of breath and sweating. She states she also started coughing last night. She states she is 9 weeks , 4 para 3. She did have some nausea and vomiting last night also. Patient states she does have some indigestion. She is alert oriented respirations regular nonlabored speaking in full sentences. Denies any fevers. I have greeted and performed a rapid initial assessment of this patient. A comprehensive ED assessment and evaluation of the patient, analysis of test results and completion of medical decision making process will be conducted by an additional ED providers. TRAVEL OUTSIDE OF THE [place] IN LAST 30 DAYS: No - Related Data Allergies/Adverse Reactions: No Known Allergies Allergy (Verified 06/17/19 10:35) Past Medical History - Past Medical History Cardiac Medical History: Reports: Hx Hypertension - hx last Denies: Hx Heart Murmur Endocrine Medical History: 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 Denies: Hx Hyperthyroidism, Hx Hypothyroidism Renal/ Medical History: Denies: Hx Ovarian Cysts, Hx Peritoneal Dialysis, Hx Pelvic Inflammatory Disease Malignancy Medical History: Denies: Hx Breast Cancer, Hx Cervical Cancer, Hx Ovarian Cancer GI Medical History: Reports: Hx Gastroesophageal Reflux Disease - OCCASSIONAL DURING . Denies: Hx Hiatal Hernia, Hx Ulcer Past Surgical History: Reports: Hx Section - X3 - Immunizations Immunizations up to date: Yes Hx Diphtheria, Pertussis, Tetanus Vaccination: Yes - already received Physical Exam - Vital signs Vitals: Temp Pulse Resp BP Pulse Ox 98.2 F 89 20 112/64 99 06/17/19 09:55 06/17/19 09:55 06/17/19 09:55 06/17/19 09:55 06/17/19 09:55 Course - Vital Signs Vital signs: Temp Pulse Resp BP Pulse Ox 98.2 F 89 20 112/64 99 06/17/19 09:55 06/17/19 09:55 06/17/19 09:55 06/17/19 09:55 06/17/19 09:55
[2019-06-17] MEDS ORDERED: MAG HYDROX/AL HYDROX/SIMETH SUSP 30 ML UDCUP PO ONE (10:40)
[2019-06-17] MEDS ORDERED: METOCLOPRAMIDE HCL ORAL SOLN 10 MG/10 ML UDCUP PO ONE (10:40)
[2019-06-17] MEDS ORDERED: LIDOCAINE 2% VISCOUS SOLN 15 ML UDCUP PO ONE (10:40)
[2019-06-17 11:14] LABS: ABSOLUTE LYMPHOCYTES (AUTO) 0.7 10^3/uL (0.5-4.7); ABSOLUTE MONOCYTES (AUTO) 0.7 10^3/uL (0.1-1.4); BASOPHILS % (AUTO) 0.3 % (0-2); EOSINOPHILS % (AUTO) 0.2 % (0-6); HEMATOCRIT 38.2 % (36.0-47.0); HEMOGLOBIN 12.5 g/dL (12.0-15.5); LYMPHOCYTES % (AUTO) 8.1 % (13-45); MEAN CORPUSCULAR HEMOGLOBIN 23.1 pg (27.0-33.4); MEAN CORPUSCULAR HGB CONC 32.7 g/dL (32.0-36.0); MEAN CORPUSCULAR VOLUME 71 fl (80-97); MONOCYTES % (AUTO) 8.5 % (3-13); PLATELET COUNT 285 10^3/uL (150-450); RED BLOOD COUNT 5.41 10^6/uL (3.72-5.28); RED CELL DISTRIBUTION WIDTH 18.1 % (11.5-14.0); SEGMENTED NEUTROPHILS % (AUTO) 82.9 % (42-78); TOTAL CELLS COUNTED % (AUTO) 100 %; WHITE BLOOD COUNT 8.4 10^3/uL (4.0-10.5)
--- NOTE | 2019-06-17 11:16 | RADIOLOGY REPORT (SQ) ---
EXAM DESCRIPTION: CHEST 2 VIEWS COMPLETED DATE/TIME: 06/17/2019 11:03 am REASON FOR STUDY: chest pain COMPARISON: PA and lateral views of the chest from 04/25/2015. EXAM PARAMETERS: NUMBER OF VIEWS: Two views. TECHNIQUE: PA and lateral views of the chest were obtained.. RADIATION DOSE: NA LIMITATIONS: none FINDINGS: LUNGS AND PLEURA: No consolidation, pleural effusion or pneumothorax. MEDIASTINUM AND HILAR STRUCTURES: No mediastinal or hilar contour abnormality. HEART AND VASCULAR STRUCTURES: The cardiac silhouette and pulmonary vasculature are within normal aranda its. BONES: No acute findings. HARDWARE: None in the chest. OTHER: No other finding. IMPRESSION: No acute cardiopulmonary process. TECHNICAL DOCUMENTATION: JOB ID: [id number] [employer]- All Rights Reserved Reading location - IP/workstation name: [email or web address]
[2019-06-17 11:30] LABS: APPEARANCE,URINE SLIGHTLY-CLOUDY; BILIRUBIN,URINE NEGATIVE (NEGATIVE); COLOR,URINE YELLOW; GLUCOSE, URINE NEGATIVE (NEGATIVE); KETONES,URINE TRACE mg/dL (NEGATIVE); PROTEIN,URINE NEGATIVE (NEGATIVE); URINE SPECIFIC GRAVITY 1.024; UROBILINOGEN,URINE NEGATIVE mg/dL (<2.0)
[2019-06-17 11:38] LABS: ALBUMIN 4.1 g/dL (3.5-5.0); ALKALINE PHOSPHATASE 77 U/L (38-126); ANION GAP 10 (5-19); ASPARTATE AMINO TRANSFERASE 25 U/L (14-36); BILIRUBIN,DIRECT 0.3 mg/dL (0.0-0.4); BILIRUBIN,TOTAL 0.4 mg/dL (0.2-1.3); BLOOD UREA NITROGEN 9 mg/dL (7-20); CALCIUM 9.3 mg/dL (8.4-10.2); CARBON DIOXIDE 24 mmol/L (22-30); CHLORIDE 101 mmol/L (98-107); GLUCOSE 85 mg/dL (75-110); POTASSIUM 4.1 mmol/L (3.6-5.0); TOTAL PROTEIN 7.4 g/dL (6.3-8.2)
--- NOTE | 2019-06-17 13:06 | EKG REPORT ---
SEVERITY:- NORMAL ECG - SINUS RHYTHM : Confirmed by: Jani Pan 17-Jun-2019 13:05:03
[2019-06-17] MEDS ORDERED: NORMAL SALINE 1000 ML 1,000 ML IV ONE ×2 (15:33→18:24)
[2019-06-17 15:42] LABS: A TYPE INFLUENZA AG NEGATIVE (NEGATIVE); B INFLUENZA AG NEGATIVE (NEGATIVE)
--- NOTE | 2019-06-17 15:48 | ER Document Report ---
ED General - General Chief Complaint: Chest Pain Stated Complaint: CHEST PAIN Time Seen by Provider: 06/17/19 10:35 Mode of Arrival: Ambulatory Information source: Patient Notes: 8-year-old black female arrives by POV with chief complaint of having sore throat and anterior chest pain and shortness of breath that awoke her from sleep early this morning. Her boyfriend Yossi Turcios has had an upper respiratory tract infection for 1 week now. Patient admits to having severe sore throat but denies any rhinorrhea cough or cold symptoms yet. She is now 9 weeks gravid. She was shielded on her chest x-ray which was negative. Her CBC CMP were within normal limits. Blood pressure is hypotensive at 95 systolic and she is tachycardic around 105 TRAVEL OUTSIDE OF THE [place] IN LAST 30 DAYS: No - HPI Onset: This morning Onset/Duration: Sudden Quality of pain: Achy Severity: Mild Pain Level: 1 Associated symptoms: Chest pain, Sore throat Exacerbated by: Movement Relieved by: Denies Similar symptoms previously: No Recently seen / treated by doctor: No - Related Data Allergies/Adverse Reactions: No Known Allergies Allergy (Verified 06/17/19 10:35) Past Medical History - General Information source: Patient - Social History Smoking Status: Former Smoker Frequency of alcohol use: None Drug Abuse: None Family History: DM, Malignancy Patient has suicidal ideation: No Patient has homicidal ideation: No - Past Medical History Cardiac Medical History: Reports: Hx Hypertension - hx last Denies: Hx Heart Murmur Endocrine Medical History: 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 Denies: Hx Hyperthyroidism, Hx Hypothyroidism Renal/ Medical History: Denies: Hx Ovarian Cysts, Hx Peritoneal Dialysis, Hx Pelvic Inflammatory Disease Malignancy Medical History: Denies: Hx Breast Cancer, Hx Cervical Cancer, Hx Ovarian Cancer GI Medical History: Reports: Hx Gastroesophageal Reflux Disease - OCCASSIONAL DURING . Denies: Hx Hiatal Hernia, Hx Ulcer Past Surgical History: Reports: Hx Section - X3 - Immunizations Immunizations up to date: Yes Hx Diphtheria, Pertussis, Tetanus Vaccination: Yes - already received Review of Systems - Review of Systems Constitutional: No symptoms reported, Fever, Weakness EENT: No symptoms reported Cardiovascular: No symptoms reported Respiratory: No symptoms reported Gastrointestinal: No symptoms reported Genitourinary: No symptoms reported Female Genitourinary: No symptoms reported Musculoskeletal: No symptoms reported Skin: No symptoms reported Hematologic/Lymphatic: No symptoms reported Neurological/Psychological: No symptoms reported Physical Exam - Vital signs Vitals: Temp Pulse Resp BP Pulse Ox 98.2 F 89 20 112/64 99 06/17/19 09:55 06/17/19 09:55 06/17/19 09:55 06/17/19 09:55 06/17/19 09:55 Interpretation: Hypotensive, Tachycardic - General General appearance: Alert In distress: None - HEENT Head: Normocephalic Eyes: Normal Conjunctiva: Normal Cornea: Normal Extraocular movements intact: Yes Eyelashes: Normal Pupils: PERRL Mouth/Lips: Normal Mucous membranes: Normal Pharynx: Erythema - Respiratory Respiratory status: No respiratory distress Chest status: Nontender Breath sounds: Normal Chest palpation: Normal - Cardiovascular Rhythm: Tachycardia Heart sounds: Normal auscultation Murmur: No Friction rub: No Monica's crunch: No - Abdominal Inspection: Normal Distension: No distension Bowel sounds: Normal Tenderness: Nontender Organomegaly: No organomegaly - Back Back: Normal - Extremities General upper extremity: Normal inspection General lower extremity: Normal inspection - Neurological Neuro grossly intact: Yes Cognition: Normal Orientation: AAOx4 Cuco Coma Scale Eye Opening: Spontaneous Cuco Coma Scale Verbal: Oriented Cuco Coma Scale Motor: Obeys Commands [place] Coma Scale Total: 15 Speech: Normal Cranial nerves: Normal - Psychological Associated symptoms: Normal affect - Skin Skin Temperature: Warm Skin Moisture: Dry Course - Vital Signs Vital signs: Temp Pulse Resp BP Pulse Ox 98.2 F 89 17 117/75 100 06/17/19 09:55 06/17/19 09:55 06/17/19 17:01 06/17/19 17:00 06/17/19 17:01 - Laboratory Result Diagrams: 06/17/19 10:44 06/17/19 10:44 Laboratory results interpreted by me: 06/17/19 06/17/19 06/17/19 10:44 10:44 10:44 RBC 5.41 H MCV 71 L MCH 23.1 L RDW 18.1 H Lymph % (Auto) 8.1 L Seg Neutrophils % 82.9 H D-Dimer Sodium 135.0 L Beta HCG, Quant 964143.00 H Urine Ketones TRACE H 01/31/20 10:44 RBC MCV MCH RDW Lymph % (Auto) Seg Neutrophils % D-Dimer 0.74 H Sodium Beta HCG, Quant Urine Ketones - Diagnostic Test Radiology reviewed: Reports reviewed Critical Care Note - Critical Care Note Total time excluding time spent on procedures (mins): 90 Comments: I discussed findings with patient I will empirically write her for Z-Forrest and for Atarax syrup Discharge - Discharge Clinical Impression: URI (upper respiratory infection), Pharyngitis, Disposition: HOME, SELF-CARE Additional Instructions: follow up with personal doctor return to ER as needed take medicines as directed return symptoms become more severe encourage fluids like lemon juice mixed with honey chocolate for cough or sore throat. Also follow-up with your OB doctor Prescriptions: Hydroxyzine HCl [Atarax 2 mg/ml Syrup] 16 mg PO TID PRN #60 ml PRN Reason: Azithromycin [Zithromax 250 mg Tablet] 250 mg PO ASDIR PRN #6 tablet PRN Reason:
[2019-06-17] MEDS ORDERED: OXYCODONE-ACETAMINOPHEN 5-325 MG TABLET PO ONE (17:52)
--- NOTE | 2019-06-17 18:19 | RADIOLOGY REPORT (SQ) ---
EXAM DESCRIPTION: CTA CHEST COMPLETED DATE/TIME: 06/17/2019 6:00 pm REASON FOR STUDY: tachycardia COMPARISON: None. TECHNIQUE: CT scan of the chest performed using helical scanning technique with dynamic intravenous contrast injection. Images reviewed with lung, soft tissue and bone windows. Reconstructed coronal and sagittal MPR images reviewed. Additional 3 dimensional post-processing performed to develop Maximal Intensity Projection images (LA P). All images stored on PACS. All CT scanners at this facility use dose modulation, iterative reconstruction, and/or weight based d osing when appropriate to reduce radiation dose to as low as reasonably achievable (ALARA). [facility]: Dose Right [facility]: CareDose [facility]: Dose Right [facility]: Teradose 4D [facility]: [employer] CONTRAST TYPE AND DOSE: contrast/concentration: Isovue 350.00 mg/ml; Total Contrast Delivered: 65.0 ml; Total Saline Delivered: 80.0 ml Contrast bolus not optimized for the pulmonary arteries. RENAL FUNCTION: None required. The patient is less than 50 years old. RADIATION DOSE: CT Rad equipment meets quality standard of care and radiation dose reduction techniq ues were employed. CTDIvol: 14.9 - 22.3 mGy. DLP: 778 mGy-cm. . LIMITATIONS: None. FINDINGS: LUNGS AND PLEURA: No masses, infiltrates, or pneumothorax. No pleural effusions or pleura l calcifications. AORTA AND GREAT VESSELS: No aneurysm. Contrast bolus not optimized for the aorta. HEART: No pericardial effusion. No significant coronary artery calcifications. PULMONARY ARTERIES: No emboli visualized in the main pulmonary arteries or the segmental branches. HILAR AND MEDIASTINAL STRUCTURES: No identified masses or abnormal nodes. HARDWARE: None in the chest. UPPER ABDOMEN: No significant findings. Limited exam. THYROID AND OTHER SOFT TISSUES: No masses. No adenopathy. BONES: No acute or significant finding. 3D MIPS: Confirm above findings. OTHER: No other significant finding. IMPRESSION: NORMAL CTA OF THE CHEST. NO PULMONARY EMBOLI. COMMENT: Quality ID # [id number]: Final reports with documentation of one or more dose reduction techniques (e.g., Automated exposure control, adjustment of the mA and/or kV according to patient size, use of iterative reconstruction technique) TECHNICAL DOCUMENTATION: JOB ID: [id number] [employer]- All Rights Reserved Reading location - IP/workstation name: [email or web address]
[2019-06-17 20:14] VITALS: BP 108/69
== END 2019-06-17 20:15 | disposition home or self-care (01) ==
LOC: ER 09:34
DX: O99.511 Diseases of the respiratory system complicating pregnancy, first trimester (principal); J06.9 Acute upper respiratory infection, unspecified; J02.9 Acute pharyngitis, unspecified; O26.891 Other specified pregnancy related conditions, first trimester; R07.9 Chest pain, unspecified; R06.02 Shortness of breath; R00.0 Tachycardia, unspecified; Z3A.09 9 weeks gestation of pregnancy; Z87.891 Personal history of nicotine dependence
CPT/HCPCS: 93005; 99291; 99292; 96360; 96361; 36415; 87070; 87880; 84702; 83690; 85025; 80053; 81001; 84484; 85379; 87804; 71046; 71275; 93010; J3490; J7030

== ENCOUNTER 2019-08-24 17:46 | Emergency (ER) | payer SELFPAY ==
[2019-08-24] MEDS ORDERED: KETOROLAC TROMETHAMINE 60 MG/2 ML SDV IM ONE (19:46)
[2019-08-24] MEDS ORDERED: DEXAMETHASONE 4 MG TABLET PO ONE (19:46)
[2019-08-24 20:50] LABS: A TYPE INFLUENZA AG NEGATIVE (NEGATIVE); B INFLUENZA AG NEGATIVE (NEGATIVE)
[2019-08-24] MEDS ORDERED: PENICILLIN G BENZATHINE 1.2 MILLION UNIT/2 ML DISP.SYRIN IM ONE (21:18)
--- NOTE | 2019-08-24 22:08 | ER Document Report ---
ED General - General Chief Complaint: Fever Stated Complaint: FEVER Time Seen by Provider: 08/24/19 19:17 TRAVEL OUTSIDE OF THE [place] IN LAST 30 DAYS: No - HPI Notes: 29-year-old female no significant medical history presents with few days of sore throat, malaise, and subjective fever. Patient denies any shortness of breath, chest pain, dizziness, ability to eat or drink, immune compromise, prior treat ment/eval, sick contacts, recent travel, vomiting, headache, neck pain/stiffness - Related Data Allergies/Adverse Reactions: No Known Allergies Allergy (Verified 06/17/19 10:35) Past Medical History - General Information source: Patient - Social History Smoking Status: Unknown if Ever Smoked Frequency of alcohol use: None Drug Abuse: None Family History: DM, Malignancy Patient has suicidal ideation: No Patient has homicidal ideation: No - Past Medical History Cardiac Medical History: Reports: Hx Hypertension - hx last Denies: Hx Heart Murmur Endocrine Medical History: 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 Denies: Hx Hyperthyroidism, Hx Hypothyroidism Renal/ Medical History: Denies: Hx Ovarian Cysts, Hx Peritoneal Dialysis, Hx Pelvic Inflammatory Disease Malignancy Medical History: Denies: Hx Breast Cancer, Hx Cervical Cancer, Hx Ovarian Cancer GI Medical History: Reports: Hx Gastroesophageal Reflux Disease - OCCASSIONAL DURING . Denies: Hx Hiatal Hernia, Hx Ulcer Past Surgical History: Reports: Hx Section - X3 - Immunizations Immunizations up to date: Yes Hx Diphtheria, Pertussis, Tetanus Vaccination: Yes - already received Review of Systems - Review of Systems Notes: REVIEW OF SYSTEMS: CONSTITUTIONAL : +fever, +chills, or sweats. EENT: Denies recent sinus symptoms, +throat pain CARDIOVASCULAR: Denies chest pain, [employer]: Denies cough, denies shortness of breath. GASTROINTESTINAL: Denies abdominal pain, nausea/vomiting. GENITOURINARY: Denies difficulty urinating, painful urination. FEMALE GENITOURINARY: Denies abnormal vaginal bleeding, vaginal discharge. MUSCULOSKELETAL: Denies neck pain, back pain. SKIN: Denies rash or skin lesions. HEMATOLOGIC : Denies easy bruising or bleeding. LYMPHATIC: Denies swollen, enlarged glands. NEUROLOGICAL: Denies headache, denies change in gait. PSYCHIATRIC: Denies anxiety or stress or depression. Physical Exam - Vital signs Vitals: Temp Pulse Resp BP Pulse Ox 98.2 F 99 14 120/67 99 08/24/19 18:25 08/24/19 18:25 08/24/19 18:25 08/24/19 18:25 08/24/19 18:25 - Notes Notes: PHYSICAL EXAMINATION: GENERAL: Well-appearing, well-nourished and in no acute distress. HEAD: Atraumatic, normocephalic. EYES: Pupils equal round and appropriate constriction, sclera anicteric, conjunctiva are normal. ENT: nares patent, moist mucous membranes. Mild tonsillar erythema and edema bilaterally without exudates, uvula midline, normal palate NECK: Normal range of motion, supple without lymphadenopathy LUNGS: Breath sounds clear to auscultation bilaterally and equal. No wheezes rales or rhonchi. HEART: Regular rate and rhythm without murmurs ABDOMEN: Soft, nontender, no guarding, no masses, no CVAT EXTREMITIES: Normal range of motion, no pitting or edema. No cyanosis. NEUROLOGICAL: Awake, alert, conversing appropriately, moves all extremities spontaneously. PSYCH: Normal mood, normal affect. SKIN: Warm, Dry, normal turgor, no rashes or lesions noted. Course - Re-evaluation Re-evalutation: 08/25/19 01:00 Patient well-appearing, no signs of dehydration, no signs of abscess, no respiratory distress, no risk factors for severe course. Likely viral pharyngitis, rule out strep, rule out COVID. Strep resulted positive so patient given benzathine penicillin, but then refused COVID testing because did not want to wait. I instructed patient to quarantine for 2 weeks since refused testing, instructed her to follow-up with primary doctor, and gave extensive return to ED precautions which she demonstrated understanding of. - Vital Signs Vital signs: Temp Pulse Resp BP Pulse Ox 98.4 F 98 15 125/74 98 08/24/19 23:10 08/24/19 23:10 08/24/19 23:10 08/24/19 23:10 08/24/19 23:10 Discharge - Discharge Clinical Impression: Strep pharyngitis Condition: Good Disposition: HOME, SELF-CARE Additional Instructions: Strep Throat Your sore throat is due to the streptococcus germ (strep throat). Strep throat usually makes you feel quite ill with fever and aches, headache, swollen sore throat, and tender bumps under the angles of the jaw. Strep throat requires antibiotic treatment. Although the sore throat may go away by itself, complications such as rheumatic fever, kidney disease, or throat abscess can occur. We usually prescribe antibiotics by mouth. Be sure to take the medicine until it's gone. If you stop early, the strep may come back. If you are vomiting, are severely ill, or can't remember to take pills, we can give you an antibiotic shot. Take acetaminophen or ibuprofen for pain and fever. Sip frequent clear liquids, or use popsicles or ice chips. Anesthetic sprays or lozenges may help. Make sure the air in the room is not too dry. Avoid using decongestants or antihistamines. Call the doctor if there is no improvement in three days, or if you have difficulty breathing, increasing throat pain, high fever, rash, or frequent vomiting. Return to ED immediately if symptoms worsen, difficulty breathing, dizziness, fainting, inability to keep down liquids by mouth, or any other worsening or alarming symptoms. Follow-up with your primary doctor within 1 week.
[2019-08-24 23:10] VITALS: BP 125/74
== END 2019-08-24 23:09 | disposition home or self-care (01) ==
LOC: ER 17:46
DX: J02.0 Streptococcal pharyngitis (principal); R50.9 Fever, unspecified; R53.81 Other malaise
CPT/HCPCS: 99283; 96372; 87880; 81025; 87804; J8540; J1885; J0561